=== PATIENT | male | born 1965 | race Caucasian/White ===

== ENCOUNTER 2018-09-18 19:30 | Emergency (ER) | payer BC ==
[2018-09-18] MEDS ORDERED: ASPIRIN 81 MG CHEWABLE TABLET PO ONE (19:57)
[2018-09-18 19:59] LABS: ABSOLUTE NEUTROPHIL COUNT 4.67; BASO % 0.5 % (0-6); EOS % 2.9 % (0-6); GRAN % 60.5 % (47-80); HEMATOCRIT 43.5 % (42.0-52.0); HEMOGLOBIN 15.7 gm/dl (14.0-18.0); LYMPH % 24.8 % (16-45); MEAN CELL VOLUME 84.3 fl (81-97); MEAN CORPUSCULAR HEMOGLOBIN 30.4 pg (27-33); MEAN CORPUSCULAR HGB CONC 36.1 g/dl (32-36); MEAN PLATELET VOLUME 9.5 fl (7.4-10.4); MONO % 11.3 % (0-9); PLATELET COUNT 282 K/uL (130-400); RED BLOOD COUNT 5.16 M/uL (4.40-5.70); RED CELL DISTRIBUTION WIDTH 13.5 % (11.5-14.5); WHITE BLOOD COUNT W/O DIFF 7.7 K/uL (4.2-12.2)
[2018-09-18] MEDS: NITROGLYCERIN 0.4MG SL TABLET #25 BTL SL PRN ×2 (20:08→20:13)
[2018-09-18 20:10] LABS: BLOOD UREA NITROGEN 20 mg/dL (6-20); CREATININE 0.9 mg/dL (0.7-1.2); EST GLOMERULAR FILTRATION RATE > 60 mL/min
[2018-09-18 20:13] LABS: GLUCOSE,RANDOM 154 mg/dL (74-109)
[2018-09-18 20:16] LABS: CREATINE PHOSPHOKINASE 239 U/L (39-308)
[2018-09-18 20:19] LABS: CKMB 4.4 ng/mL (<6.73)
--- NOTE | 2018-09-18 21:20 | Emergency Department Record ---
History of Present Illness - General Chief Complaint: Chest Pain Stated Complaint: CHEST PAIN Time Seen by Provider: 09/18/18 19:34 Source: Patient Mode of Arrival: Ambulatory Limitations: No limitations - History of Present Illness Initial Comments: pt had sudden onset of n/v 1 hour ago w diaphoresis then developed cp that radiated to l arm and neck. it is currentlt 06/20. he has fam hx and hi chol. 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 MD Complaint: Chest pain Onset/Timin -: Minutes(s) Onset: After eating Pain Location: Left chest Pain Radiation: LUE Severity: Mild Severity scale (1-10): 5 Quality: Sharp Consistency: Constant Improves With: Nothing Worsens With: Movement Context: Recent travel [place] Symptoms: Nausea, Vomiting Treatments Prior to Arrival: None - Related Data Allergies Allergy/AdvReac Type Severity Reaction Status Date / Time Penicillins Allergy PT UNSURE Verified 09/18/18 19:33 OF REACTION Travel Screening - Travel/Exposure Within Last 30 Days Have you traveled within the last 30 days?: Yes Location Detail:: [place] - Travel/Exposure Within Last Year Have you traveled outside the [place] in the last year?: No - Additonal Travel Details Have you been exposed to anyone with a communicable illness?: No - Travel Symptoms Symptom Screening: None Review of Systems Reviewed: No additional complaints except as noted below Constitutional: Reports: As per HPI. Denies: Chills, Fever, Malaise, Night sweats, Weakness, Weight change Eyes: Reports: As per HPI. Denies: Eye discharge, Eye pain, Photophobia, Vision change ENT: Reports: As per HPI. Denies: Congestion, Dental pain, Ear pain, Epistaxis, Hearing loss, Throat pain Respiratory: Reports: As per HPI. Denies: Cough, Dyspnea, Hemoptysis, Stridor, Wheezes Cardiovascular: Reports: As per HPI, Chest pain. Denies: Arrhythmia, Dyspnea on exertion, Edema, Murmurs, Orthopnea, Palpitations, Paroxysmal nocturnal dyspnea, Rheumatic Fever, Syncope Endocrine: Reports: As per HPI. Denies: Fatigue, Heat or cold intolerance, Polydipsia, Polyuria Gastrointestinal: Reports: As per HPI. Denies: Abdominal pain, Constipation, Diarrhea, Hematemesis, Hematochezia, Melena, Nausea, Vomiting Genitourinary: Reports: As per HPI. Denies: Dysuria, Frequency, Hematuria, Incontinence, Retention, Testicular pain, Testicular mass, Urgency Musculoskeletal: Reports: As per HPI. Denies: Arthralgia, Back pain, Gout, Joint swelling, Myalgia, Neck pain Skin: Reports: As per HPI. Denies: Bruising, Change in color, Change in hair/nails, Lesions, Pruritus, Rash Neurological: Reports: As per HPI. Denies: Abnormal gait, Confusion, Headache, Numbness, Paresthesias, Seizure, Tingling, Tremors, Vertigo, Weakness Psychiatric: Reports: As per HPI. Denies: Anxiety, Auditory hallucinations, Depression, Homicidal thoughts, Suicidal thoughts, Visual hallucinations Hematological/Lymphatic: Reports: As per HPI. Denies: Anemia, Blood Clots, Easy bleeding, Easy bruising, Swollen glands Past Medical History - SOCIAL HISTORY Smoking Status: Never smoker Alcohol Use: Occasional Drug Use: None - RESPIRATORY Hx Respiratory Disorders: No - CARDIOVASCULAR Hx Cardio Disorders: Yes Hx Hypertension: Yes - NEURO Hx Neuro Disorders: No - GI Hx GI Disorders: Yes Hx Reflux: Yes Hx Ulcer: Yes - Hx Genitourinary Disorders: No - ENDOCRINE Hx Endocrine Disorders: Yes Hx Diabetes: Yes - MUSCULOSKELETAL Hx Musculoskeletal Disorders: Yes Hx Back Injury: Yes Comment:: left calf, elbow - PSYCH Hx Psych Problems: No - HEMATOLOGY/ONCOLOGY Hx Hematology/Oncology Disorders: No Family Medical History Any Significant Family History?: No Physical Exam - General General Appearance: Alert, Oriented x3, Cooperative, Mild distress - Head Head exam: Normal inspection - Eye Eye exam: Normal appearance, PERRL, EOMI Pupils: Normal accommodation - ENT ENT exam: Normal exam, Mucous membranes moist, Normal external ear exam, Normal orophraynx Ear exam: Normal external inspection. negative: External canal tenderness Nasal Exam: Normal inspection. negative: Discharge, Sinus tenderness Mouth exam: Normal external inspection, Tongue normal Teeth exam: Normal inspection. negative: Dental caries Throat exam: Normal inspection. negative: Tonsillar erythema, Tonsillar exudate - Neck Neck exam: Normal inspection, Full ROM. negative: Tenderness - Respiratory Respiratory exam: Normal lung sounds bilaterally. negative: Respiratory distress - Cardiovascular Cardiovascular Exam: Regular rate, Normal rhythm, Normal heart sounds - GI/Abdominal GI/Abdominal exam: Soft, Normal bowel sounds. negative: Tenderness - Rectal Rectal exam: Deferred - exam: Deferred - Extremities Extremities exam: Normal inspection, Full ROM, Normal capillary refill. neg ative: Tenderness - Back Back exam: Reports: Normal inspection, Full ROM. Denies: Muscle spasm, Rash noted, Tenderness - Neurological Neurological exam: Alert, CN II-XII intact, Normal gait, Oriented X3 - Psychiatric Psychiatric exam: Normal affect, Normal mood - Skin Skin exam: Dry, Intact, Normal color, Warm Course Vital Signs 09/18/18 09/18/18 09/18/18 19:33 19:43 20:08 Temperature 97.9 F Pulse Rate 80 Pulse Rate [ 85 Pulse Ox Probe] Respiratory 19 24 Rate Blood Pressure 152/93 Blood Pressure 138/86 [Right Arm] Pulse Ox 96 94 L 09/18/18 20:14 Temperature Pulse Rate Pulse Rate [ 89 Pulse Ox Probe] Respiratory 16 Rate Blood Pressure Blood Pressure 116/79 [Right Arm] Pulse Ox 94 L - Reevaluation(s) Reevaluation #1: 09/18/18 21:18 pts pain got better w ntg down to 03/22 Reevaluation #2: 09/18/18 21:19 cxr neg Medical Decision Making - Lab Data Result diagrams: 09/18/18 19:50 09/18/18 19:50 Lab Results 09/18/18 09/18/18 09/18/18 Range/Units 19:50 19:50 19:50 WBC 7.7 (4.2-12.2) K/uL RBC 5.16 (4.40-5.70) M/uL Hgb 15.7 (14.0-18.0) gm/dl Hct 43.5 (42.0-52.0) % MCV 84.3 (81-97) fl MCH 30.4 (27-33) pg MCHC 36.1 H (32-36) g/dl RDW 13.5 (11.5-14.5) % Plt Count 282 (130-400) K/uL MPV 9.5 (7.4-10.4) fl Gran % 60.5 (47-80) % Lymphocytes % 24.8 (16-45) % Monocytes % 11.3 H (0-9) % Eosinophils % 2.9 (0-6) % Basophils % 0.5 (0-6) % Absolute Neutrophils 4.67 APTT 26.0 (24.5-39.1) SECONDS D-Dimer (0-0.59) mg/L FEU Sodium 140 (136-145) mmol/L Potassium 4.3 (3.4-4.5) mmol/L Chloride 100 (98-107) mmol/L Carbon Dioxide 25.0 (22-29) mmol/L Anion Gap 15.0 (7-16) BUN 20 (6-20) mg/dL Creatinine 0.9 (0.7-1.2) mg/dL Estimated GFR > 60 mL/min Random Glucose 154 H (74-109) mg/dL Calcium 9.5 (8.6-10.0) mg/dL Creatine Kinase 239 (39-308) U/L CK-MB (CK-2) 4.4 (<6.73) ng/mL Myoglobin 74.2 H (28-72) ng/mL Troponin T (0-0.010) ng/mL 09/18/18 09/18/18 Range/Units 19:50 19:50 WBC (4.2-12.2) K/uL RBC (4.40-5.70) M/uL Hgb (14.0-18.0) gm/dl Hct (42.0-52.0) % MCV (81-97) fl MCH (27-33) pg MCHC (32-36) g/dl RDW (11.5-14.5) % Plt Count (130-400) K/uL MPV (7.4-10.4) fl Gran % (47-80) % Lymphocytes % (16-45) % Monocytes % (0-9) % Eosinophils % (0-6) % Basophils % (0-6) % Absolute Neutrophils APTT (24.5-39.1) SECONDS D-Dimer 0.41 (0-0.59) mg/L FEU Sodium (136-145) mmol/L Potassium (3.4-4.5) mmol/L Chloride (98-107) mmol/L Carbon Dioxide (22-29) mmol/L Anion Gap (7-16) BUN (6-20) mg/dL Creatinine (0.7-1.2) mg/dL Estimated GFR mL/min Random Glucose (74-109) mg/dL Calcium (8.6-10.0) mg/dL Creatine Kinase (39-308) U/L CK-MB (CK-2) (<6.73) ng/mL Myoglobin (28-72) ng/mL Troponin T < 0.010 (0-0.010) ng/mL Disposition Disposition: Transfer Clinical Impression: Chest pain Qualifiers: Chest pain type: unspecified Qualified Code(s): R07.9 - Chest pain, unspecified Disposition: Acute Care Hospital Transfer Transfer To: [facility] 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
== END 2018-09-18 23:53 | disposition short-term general hospital (02) ==
LOC: ER 19:30
DX: R07.9 Chest pain, unspecified (principal); R61 Generalized hyperhidrosis; R11.2 Nausea with vomiting, unspecified; M79.622 Pain in left upper arm; M54.2 Cervicalgia; R19.7 Diarrhea, unspecified; E11.9 Type 2 diabetes mellitus without complications; I10 Essential (primary) hypertension
CPT/HCPCS: 71046; 80048; 82550; 82553; 83874; 84484; 85025; 85379; 85730; 93005; 93010; 99285

== ENCOUNTER 2018-11-19 21:45 | Emergency (ER) | payer SELFPAY ==
[2018-11-19] MEDS ORDERED: ONDANSETRON HCL IV 4 MG/2 ML VIAL IVP ONE (21:52)
[2018-11-19] MEDS ORDERED: METHYLPREDNISOLONE PF 125MG/VIAL IVP ONE (21:52)
[2018-11-19] MEDS ORDERED: MORPHINE SULFATE 5 MG/ML VIAL IVP ONE (21:52)
[2018-11-19] MEDS ORDERED: KETOROLAC 30 MG/ML VIAL IVP ONE (21:53)
--- NOTE | 2018-11-19 21:59 | Emergency Department Record ---
History of Present Illness - General Chief Complaint: Back Pain/Injury Stated Complaint: BACK PAIN Time Seen by Provider: 11/19/18 21:46 Source: Patient, Family Mode of Arrival: Ambulatory Limitations: No limitations - History of Present Illness Initial Comments: 53yo male presents with lumbar pain. He reports he has frequent mild pain. Today at work it gradually increased throughout the day. the pain is sharp in the lumbar area. It does radiate down the leg on the right at times. He has had prior L4L5 surgery. No weakness. The right leg does tingle at times. No foot drop. No coolness or abnormal warm. No changes in bowel or bladder function. No abdominal pain. He gets some relief laying very flat and worse with moving or bending. MD Complaint: Back pain, Back injury Onset/Timin -: Hour(s) Similar Symptoms Previously: No Place: Work Radiation: None Severity: Moderate Severity scale (1-10): 7 Quality: Aching, Sharp Consistency: Constant Improves With: Supine Worsens With: Movement, Sitting upright Context: While lifting Associated Symptoms: Denies other symptoms Treatments Prior to Arrival: Other medications, Prescription analgesics - Related Data Allergies Allergy/AdvReac Type Severity Reaction Status Date / Time Penicillins Allergy PT UNSURE Verified 09/18/18 19:33 OF REACTION Travel Screening - Travel/Exposure Within Last 30 Days Have you traveled within the last 30 days?: No - Travel/Exposure Within Last Year Have you traveled outside the [place] in the last year?: No - Additonal Travel Details Have you been exposed to anyone with a communicable illness?: No - Travel Symptoms Symptom Screening: None Review of Systems Constitutional: Denies: Chills, Fever, Weakness Eyes: Denies: Eye discharge ENT: Denies: Congestion Respiratory: Denies: Cough, Dyspnea, Hemoptysis, Wheezes Cardiovascular: Denies: Chest pain, Edema, Palpitations, Syncope Endocrine: Denies: Fatigue Gastrointestinal: Denies: Abdominal pain, Diarrhea, Nausea, Vomiting Genitourinary: Denies: Dysuria, Frequency, Hematuria Musculoskeletal: Reports: As per HPI, Back pain. Denies: Arthralgia, Joint swelling, Myalgia, Neck pain Skin: Denies: Bruising, Change in color, Rash Neurological: Reports: Tingling. Denies: Abnormal gait, Confusion, Headache, Numbness, Tremors, Weakness Psychiatric: Denies: Anxiety Hematological/Lymphatic: Denies: Easy bleeding, Easy bruising Past Medical History - SOCIAL HISTORY Smoking Status: Never smoker Alcohol Use: None Drug Use: None - RESPIRATORY Hx Respiratory Disorders: No - CARDIOVASCULAR Hx Cardio Disorders: Yes Hx Hypertension: Yes - NEURO Hx Neuro Disorders: No - GI Hx GI Disorders: Yes Hx Reflux: Yes Hx Ulcer: Yes - Hx Genitourinary Disorders: No - ENDOCRINE Hx Endocrine Disorders: Yes Hx Diabetes: Yes - MUSCULOSKELETAL Hx Musculoskeletal Disorders: Yes Hx Back Injury: Yes Comment:: left calf, elbow - PSYCH Hx Psych Problems: No - HEMATOLOGY/ONCOLOGY Hx Hematology/Oncology Disorders: No Family Medical History Any Significant Family History?: No Physical Exam - General General Appearance: Alert, Oriented x3, Cooperative, No acute distress Limitations: No limitations - Head Head exam: Atraumatic, Normal inspection - Eye Eye exam: Normal appearance, PERRL. negative: Conjunctival injection, Scleral icterus - ENT ENT exam: Normal exam, Mucous membranes moist Ear exam: Normal external inspection Nasal Exam: Normal inspection Mouth exam: Normal external inspection - Neck Neck exam: Normal inspection - Respiratory Respiratory exam: Normal lung sounds bilaterally. negative: Accessory muscle use, Chest wall tenderness, Decreased breath sounds, Prolonged expiratory, Respiratory distress, Rhonchi, Stridor, Wheezes - Cardiovascular Cardiovascular Exam: Regular rate, Normal rhythm, Normal heart sounds. negative: Diastolic murmur, Systolic murmur Peripheral Pulses: 1+: Radial (R), Radial (L) - GI/Abdominal GI/Abdominal exam: Soft. negative: Guarding, Mass, Pulsatile mass, Tenderness - Rectal Rectal exam: Deferred - exam: Deferred - Extremities Extremities exam: Normal inspection, Full ROM. negative: Calf tenderness, Joint swelling, Normal capillary refill, Pedal edema, Tenderness - Back Back exam: Reports: Muscle spasm, Paraspinal tenderness, Tenderness, Other (relief with laying flat, worse standing upright). Denies: CVA tenderness (R), CVA tenderness (L) - Neurological Neurological exam: Alert, Normal gait, Oriented X3, Reflexes normal, Other (EHL intact, with strainght leg raise pain is in the lumbar area at 30 degrees). negative: Abnormal gait, Altered, Motor sensory deficit - Psychiatric Psychiatric exam: Normal affect, Normal mood - Skin Skin exam: Dry, Intact, Normal color, Warm Course Vital Signs 11/19/18 21:49 Temperature 97.8 F Pulse Rate 73 Respiratory 16 Rate Blood Pressure 187/103 Pulse Ox 97 - Reevaluation(s) Reevaluation #1: Normal CR 2 months ago. Toradol ordered as well. 11/19/18 22:19 The patient on recheck is doing much better with pain control. He is relaxed. No current pain down the right leg. No tingling. We discussed home care, follow up and reasons to return to the ED His PCP is Dr Reynoso. If the pain does resolve in the next few days he may need further work up with MRI given the right leg radiation or physical therapy evaluation. 11/19/18 22:21 BP much improved with pain control. 11/19/18 22:22 Disposition Disposition: Discharge Clinical Impression: Lumbar spine strain Qualifiers: Encounter type: initial encounter Qualified Code(s): S39.012A - Strain of muscle, fascia and tendon of lower back, initial encounter Disposition: Home, Self-Care Condition: (1) Good Instructions: Sciatica (ED), Low Back Strain (ED) Additional Instructions: Call your doctor for the next available follow up appointment Return to the ER for a recheck if worse, any new concerns or questions Take the prescriptions provided as directed Forms: Patient Portal Access Time of Disposition: 22:21 Quality - Quality Measures Quality Measures: N/A - Blood Pressure Screening Does Patient Have Any of the Following: Active Dx of HTN Blood Pressure Classification: Hypertensive Reading Systolic Measurement: 187 Diastolic Measurement: 103 Screening for High Blood Pressure: Patient Exclusion, Hx of HTN [G9744]
[2018-11-19] MEDS ORDERED: HYDROCODONE/APAP 5/325MG TABLET PO ONE (22:19)
== END 2018-11-19 22:30 | disposition home or self-care (01) ==
LOC: ER 21:45
DX: S39.012A Strain of muscle, fascia and tendon of lower back, initial encounter (principal); I10 Essential (primary) hypertension; X50.1XXA Overexertion from prolonged static or awkward postures, initial encounter; Y99.0 Civilian activity done for income or pay
CPT/HCPCS: 96374; 96375; 99284; J1885; J2405; J2930